=== PATIENT | female | born 1940 | race Caucasian/White ===

== ENCOUNTER 2018-08-21 03:23 | Emergency (ER) | payer MEDICARE, BC ==
--- NOTE | 2018-08-21 03:47 | ER Document Report ---
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 It does not go up past the elbow. Is not dependent on movement. Has been intermittent for 24 hours. Occasionally she has pain in her neck when she turns it to the left but not currently. No coordination problems weakness numbness tingling. History of burning pain in the left lateral foot with known lumbar radiculopathy, already in physical therapy. Absolutely no chest pain or shortness of breath. TRAVEL OUTSIDE OF THE [place] IN LAST 30 DAYS: No - Related Data Allergies/Adverse Reactions: No Known Allergies Allergy (Unverified 08/21/18 03:40) Past Medical History - General Information source: Patient - Social History Smoking Status: Never Smoker Family History: None Patient has suicidal ideation: No Patient has homicidal ideation: No Renal/ Medical History: Denies: Hx Peritoneal Dialysis Review of Systems - Review of Systems Notes: REVIEW OF SYSTEMS GEN: Denies fever, chills, weight loss ENT: Denies sore throat, nasal discharge, ear pain EYES: Denies blurry vision, eye pain, discharge CV: Denies chest pain, palpitations, edema RESP: Denies cough, shortness of breath, wheezing GI: Denies abdominal pain, nausea, vomiting, diarrhea MSK: L arm pain SKIN: Denies rash, skin lesions LYMPH: Denies swollen glands/lymph nodes NEURO: Denies headache, focal weakness or numbness, dizziness PSYCH: Denies depression, suicidal or homicidal ideation PHYSICAL EXAMINATION General: No acute distress, well-nourished Head: Atraumatic, normocephalic ENT: Mouth normal, oropharynx moist, no exudates or tonsillar enlargement Eyes: Conjunctiva normal, pupils equal, lids normal Neck: No JVD, supple, no guarding CVS: Normal rate, regular rhythm, no murmurs Resp: No resp distress, equal and normal breath sounds bilaterally GI: Nondistended, soft, no tenderness to palpation, no rebound or guarding Ext: No deformities, no edema, normal range of motion in upper and lower ext Back: No CVA or midline TTP Skin: 2 or 3 small papules not in the distribution of a dermatome on the volar left forearm Lymphatic: No lymphadeopathy noted Neuro: Awake, alert. Face symmetric. GCS 15. Negative Spurling test. Normal strength and sensation bilateral upper extremities. Physical Exam - Vital signs Vitals: Temp Pulse Resp BP Pulse Ox 97.7 F 98 18 199/79 H 96 08/21/18 03:23 08/21/18 03:23 08/21/18 03:23 08/21/18 03:23 08/21/18 03:23 Course - Re-evaluation Re-evalutation: 08/21/18 03:45 Patient presents with burning and crampy pain in the left forearm with soft compartments normal neuro status negative Spurling test, but risk factors for cervical radiculopathy. Absolutely no radiation to the chest no shortness of breath and actually, patient gets yearly checkups and does not have ACS risk factors. Her physical exam is unremarkable. I doubt acute coronary syndrome, and her EKG which was ordered by nursing, is normal. I do not believe she requires further workup here, but I did recommend follow-up with primary for possible MRI of the cervical spine. She is already in physical therapy for her lumbar radiculopathy. Her symptoms are minor and I do not believe she requires steroid taper or Neurontin at this point. I have discussed with the patient there likely diagnosis, aftercare plan, follow-up plans and my usual and customary return precautions. They verbalized understanding of this. - Vital Signs Vital signs: Temp Pulse Resp BP Pulse Ox 97.7 F 98 18 199/79 H 96 08/21/18 03:23 08/21/18 03:23 08/21/18 03:23 08/21/18 03:23 08/21/18 03:23 - EKG Interpretation by Me EKG shows normal: Sinus rhythm Rate: Normal Rhythm: NSR When compared to previous EKG there are: Previous EKG unavailable - No ST or T wave acute changes Discharge - Discharge Clinical Impression: Cervical radiculopathy Condition: Good Disposition: HOME, SELF-CARE Instructions: Radiculopathy ([facility]) Additional Instructions: We did not find an emergent cause of your arm pain but if it changes, is accompanied by any weakness or fever or incontinence please return to the emergency room immediately. Also please return for any chest pain or shortness of breath. Otherwise your primary care doctor in 5-7 days.
[2018-08-21 03:52] VITALS: BP 178/64
--- NOTE | 2018-08-21 10:38 | EKG REPORT ---
SEVERITY:- ABNORMAL ECG - SINUS RHYTHM LEFT ATRIAL ABNORMALITY LEFT VENTRICULAR HYPERTROPHY : Confirmed by: Nilton Mckeon 21-Aug-2018 10:38:09
== END 2018-08-21 03:52 | disposition home or self-care (01) ==
LOC: ER 03:23
DX: M54.12 Radiculopathy, cervical region (principal); M54.16 Radiculopathy, lumbar region; M79.602 Pain in left arm; R23.8 Other skin changes
CPT/HCPCS: 93005; 93010; 99283